=== PATIENT | female | born 1990 | race Caucasian/White ===

== ENCOUNTER 2020-06-06 12:34 | Emergency (ER) | payer BC ==
--- NOTE | 2020-06-06 13:14 | EDM.PDOC ---
ED HPI GENERAL MEDICAL PROBLEM - General Chief Complaint: Cardiovascular Problem Stated Complaint: Palpitations Time Seen by Provider: 06/06/20 12:48 Source of Information: Reports: Patient History Limitations: Reports: No Limitations - History of Present Illness INITIAL COMMENTS - FREE TEXT/NARRATIVE: HISTORY AND PHYSICAL: History of present illness: Patient is a 30-year-old 22wk , female presenting to the ED with concerns of heart palpitations. Patient sees Dr. Eda Altamirano, obstetrics, at [facility]. Patient states that she has a history of heart palpitations that she states "she has always had" but since becoming has been more noticeable. Patient states earlier today she noticed more frequent palpitations than usual and her heart rate was 108 consistently so she was concerned and came to the ED for further evaluation. Patient states that she has been prescribed a Holter monitor but has yet to receive the device p rescribed by Dr. Altamirano. Patient denies any abdominal pain, cramping, vaginal bleeding, vaginal discharge and states that she has been feeling baby move appropriately. Patient denies fever, chills, chest pain, shortness of breath, or cough. Denies headache, neck stiff ness, change in vision, syncope, or near syncope. Denies nausea, vomiting, abdominal pain, diarrhea, constipation, or dysuria. Has not noted any blood in urine or stool. Patient has been eating and drinking appropriately. Review of systems: As per history of present illness and below otherwise all systems reviewed and negative. Past medical history: As per history of present illness and as reviewed below otherwise noncontributory. Surgical history: As per history of present illness and as reviewed below otherwise non contributory. Social history: See social history for further information Family history: As per history of present illness and as reviewed below otherwise noncontributory. Physical exam: General: Patient is alert, oriented, and in no acute distress. Patient sitting comfortably on exam table. Vitals stable and reviewed by me. HEENT: Patient states that she felt lightheaded upon sitting up during her exam. Horizontal nystagmus noted. Otherwise, atraumatic, normocephalic, pupils equal and reactive bilaterally, negative for conjunctival pallor or scleral icterus, mucous membranes moist, TMs normal bilaterally, throat clear, neck supple, nontender, trachea midline. No drooling or trismus noted. No meningeal signs. No hot potato voice noted. Lungs: Clear to auscultation, breath sounds equal bilaterally, chest nontender. Heart: S1S2, regular rate and rhythm without overt murmur. No JVD noted Abdomen: Gravid, Soft and nontender. Negative for masses or hepatosplenomegaly. Negative for costovertebral tenderness. Pelvis: Stable nontender. Genitourinary: Deferred. Rectal: Deferred. Skin: Intact, warm, dry. No lesions or rashes noted. Extremities: Atraumatic, negative for cords or calf pain. Neurovascular unremarkable. Neuro: Awake, alert, oriented. Cranial nerves II through XII unremarkable. Cerebellum unremarkable. Motor and sensory unremarkable throughout. Exam nonfocal. Notes: On initial exam, patient is vitally stable and well appearing. Will perform routine labwork and EKG. Labwork today is unremarkable. See Dr. Roberts dictation for specific EKG interpretation. Normal sinus rhythm without STEMI. PVC noted. heart tones: 158 bpm Remains vitally stable and comfortable throughout stay in ED. Zio patch/holter monitor was placed today in the ED with instruction to keep on for 2 weeks. Results sent to her primary care provider/AGRICULTURAL EDUCATION TEACHER provider Dr. Altamirano. Strict return precautions thoroughly discussed with patient. Discussed importance for follow-up with her AGRICULTURAL EDUCATION TEACHER provider. Voices understanding and is agreeable to plan of care. Denies any further questions or concerns at this time. Diagnostics: EKG, CBC, CMP, Trop Therapeutics: Normal saline Prescription: ZioPatch Holter Monitor Impression: Palpitations , 22 weeks Plan: 1. Wear the ZioPatch for 2 weeks as discussed. 2. Stop all caffeine intake as discussed. 3. Follow up with your OBGYN provider Dr. Altamirano as discussed. Results from testing will go to her for follow up. 4. Return to the ED as needed and as discussed. Definitive disposition and diagnosis as appropriate pending reevaluation and review of above. - Related Data Allergies Allergy/AdvReac Type Severity Reaction Status Date / Time nitrofurantoin Allergy Other Verified 06/06/20 13:39 [From Macrobid] Home Meds: Home Meds . [No Known Home Meds] 06/06/20 [History] Vits #93/Iron Fum/FA [ Formula Tablet] 1 tab PO DAILY 06/06/20 [History] ED ROS GENERAL - Review of Systems Review Of Systems: Comprehensive ROS is negative, except as noted in HPI. ED EXAM, GENERAL - Physical Exam Exam: See Below (see dictation) Course - Vital Signs Last Recorded V/S: Last Vital Signs Temp 97.2 F 06/06/20 12:49 Pulse 88 06/06/20 15:00 Resp 16 06/06/20 15:00 BP 106/60 06/06/20 15:00 Pulse Ox 99 06/06/20 15:00 Orthostatic Blood Pressure [ 125/82 Standing] Orthostatic Blood Pressure [ 121/78 Sitting] Orthostatic Blood Pressure [ 119/72 Supine] - Orders/Labs/Meds Orders: Active Orders 24 hr Category Date Time Status EKG Documentation Completion [RC] STAT Care 06/06/20 13:04 Active Orthostatic Vital Signs [RC] ASDIRECTED Care 06/06/20 13:34 Active Labs: Laboratory Tests 06/06/20 06/06/20 Range/Units 12:50 12:50 WBC 8.73 (4.0-11.0) K/uL RBC 3.98 L (4.30-5.90) M/uL Hgb 12.3 (12.0-16.0) g/dL Hct 36.3 (36.0-46.0) % MCV 91.2 (80.0-98.0) fL MCH 30.9 (27.0-32.0) pg MCHC 33.9 (31.0-37.0) g/dL RDW Std Deviation 45.5 (28.0-62.0) fl RDW Coeff of Saurabh 14 (11.0-15.0) % Plt Count 223 (150-400) K/uL MPV 9.00 (7.40-12.00) fL Neut % (Auto) 70.8 (48.0-80.0) % Lymph % (Auto) 23.1 (16.0-40.0) % [place] % (Auto) 4.7 (0.0-15.0) % Eos % (Auto) 1.3 (0.0-7.0) % Baso % (Auto) 0.1 (0.0-1.5) % Neut # (Auto) 6.2 H (1.4-5.7) K/uL Lymph # (Auto) 2.0 (0.6-2.4) K/uL [place] # (Auto) 0.4 (0.0-0.8) K/uL Eos # (Auto) 0.1 (0.0-0.7) K/uL Baso # (Auto) 0.0 (0.0-0.1) K/uL Nucleated RBC % 0.0 /100WBC Nucleated RBCs # 0 K/uL Sodium 138 (136-145) mmol/L Potassium 3.6 (3.5-5.1) mmol/L Chloride 103 (98-107) mmol/L Carbon Dioxide 25.0 (21.0-32.0) mmol/L BUN 5 L (7.0-18.0) mg/dL Creatinine 0.6 (0.6-1.0) mg/dL Est Cr Clr Drug Dosing TNP Estimated GFR (MDRD) > 60.0 ml/min Glucose 100 (74-106) mg/dL Calcium 8.5 (8.5-10.1) mg/dL Total Bilirubin 0.3 (0.2-1.0) mg/dL AST 15 (15-37) IU/L ALT 22 (14-63) IU/L Alkaline Phosphatase 37 L (46-116) U/L Troponin I < 0.050 (0.000-0.056) ng/mL Total Protein 6.8 (6.4-8.2) g/dL Albumin 2.9 L (3.4-5.0) g/dL Globulin 3.9 (2.6-4.0) g/dL Albumin/Globulin Ratio 0.7 L (0.9-1.6) Meds: Medications Discontinued Medications Generic Name Dose Route Start Last Admin Trade Name Freq PRN Reason Stop Dose Admin Sodium Chloride 1,000 mls @ 999 mls/hr 06/06/20 13:34 06/06/20 13:43 Normal Saline IV 06/06/20 14:34 999 mls/hr STAT ONE Administration Departure - Departure Time of Disposition: 14:48 Disposition: Home, Self-Care 01 Clinical Impression: Palpitations Qualifiers: Weeks of gestation: 22 weeks Qualified Code(s): Z3A.22 - 22 weeks gestation of Instructions: Palpitations, [id number] Referrals: PCP,None [Primary Care Provider] - Forms: ED Department Discharge Additional Instructions: The following information is given to patients seen in the emergency department who are being discharged to home. This information is to outline your options for follow-up care. We provide all patients seen in our emergency department with a follow-up referral. The need for follow-up, as well as the timing and circumstances, are variable depending upon the specifics of your emergency department visit. If you don't have a primary care physician on staff, we will provide you with a referral. We always advise you to contact your personal physician following an emergency department visit to inform them of the circumstance of the visit and for follow-up with them and/or the need for any referrals to a consulting specialist. The emergency department will also refer you to a specialist when appropriate. This referral assures that you have the opportunity for follow-up care with a specialist. All of these measure are taken in an effort to provide you with o ptimal care, which includes your follow-up. Under all circumstances we always encourage you to contact your private physician who remains a resource for coordinating your care. When calling for follow-up care, please make the office aware that this follow-up is from your recent emergency room visit. If for any reason you are refused follow-up, please contact the [facility] Emergency Department at and asked to speak to the emergency department charge nurse. [facility] [address] [place], [place] [id number] [place] [address] 1. Wear the ZioPatch for 2 weeks as discussed. 2. Stop all caffeine intake as discussed. 3. Follow up with your OBGYN provider Dr. Altamirano as discussed. Results from testing will go to her for follow up. 4. Return to the ED as needed and as discussed. Sepsis Event Note (ED) - Focused Exam Vital Signs: Vital Signs Temp Pulse Resp BP Pulse Ox 06/06/20 15:00 88 16 106/60 99 06/06/20 12:49 97.2 F 101 H 17 127/85 97 - My Orders Last 24 Hours: My Active Orders 06/06/20 13:04 EKG Documentation Completion [RC] STAT 06/06/20 13:34 Orthostatic Vital Signs [RC] ASDIRECTED - Assessment/Plan Last 24 Hours: My Active Orders 06/06/20 13:04 EKG Documentation Completion [RC] STAT 06/06/20 13:34 Orthostatic Vital Signs [RC] ASDIRECTED
[2020-06-06 13:29] LABS: BLOOD UREA NITROGEN,BUN 5 mg/dL (7.0-18.0); CHLORIDE,CL 103 mmol/L (98-107); GLUCOSE RANDOM 100 mg/dL (74-106); POTASSIUM,K 3.6 mmol/L (3.5-5.1); SODIUM,NA 138 mmol/L (136-145)
--- NOTE | 2020-06-06 13:30 | PCM.SN.2 ---
- Free Text/Narrative Note: Sinus tachycardia heart rate 97 [place] [address] and T there are 2 PVC. There is no prior for comparison impression no acute injury
[2020-06-06] MEDS ORDERED: Sodium Chloride 0.9% 1,000 ML IV ONE (13:34)
== END 2020-06-06 15:19 | disposition home or self-care (01) ==
LOC: MW.ED 12:34
DX: O99.891 Other specified diseases and conditions complicating pregnancy (principal); R00.2 Palpitations; Z3A.22 22 weeks gestation of pregnancy; Z88.1 Allergy status to other antibiotic agents
CPT/HCPCS: 36415; 80053; 84484; 85025; 93005; 99285; J7030; 93010; 99283

== ENCOUNTER 2020-07-26 17:46 | Emergency (ER) | payer BC ==
[2020-07-26] MEDS ORDERED: Acetaminophen 500 MG Tab PO ONE (18:11)
[2020-07-26] MEDS ORDERED: Diphtheria,Pertussis(Acell),Tetanus Vaccine 0.5 ML Syringe IM ONE (18:12)
--- NOTE | 2020-07-26 18:46 | EDM.PDOC ---
<KarthikeyanTony - Last Filed: 07/26/20 19:26> ED HPI GENERAL MEDICAL PROBLEM - General Chief Complaint: Upper Extremity Injury/Pain Stated Complaint: LT WRIST INJURY, 30 WKS Time Seen by Provider: 07/26/20 18:00 - Related Data Allergies Allergy/AdvReac Type Severity Reaction Status Date / Time latex Allergy Rash Verified 07/26/20 18:07 nitrofurantoin Allergy Other Verified 06/06/20 13:39 [From Macrobid] Home Meds: Home Meds Vits #93/Iron Fum/FA [ Formula Tablet] 1 tab PO DAILY 06/06/20 [History] Departure - Departure Time of Disposition: 19:27 Disposition: Home, Self-Care 01 Condition: Good Clinical Impression: Contusion of wrist, left - Discharge Information *PRESCRIPTION DRUG MONITORING PROGRAM REVIEWED*: Not Applicable *COPY OF PRESCRIPTION DRUG MONITORING REPORT IN PATIENT DILIP: Not Applicable Instructions: Hand Contusion Referrals: Adan Ceballos MD [Primary Care Provider] - Forms: ED Department Discharge Additional Instructions: Your x-rays today showed no broken bones or malalignment of the bones. You do have a small bone spur likely related to your old injury. Your pain is over this area so I suspect when he fell acute against that small spur this is likely contributing to your pain. I encourage you to rest the area you can use Tylenol as you need for pain control. If it does not improve over the next several days I encourage you to follow-up with your primary care doctor. The following information is given to patients seen in the emergency department who are being discharged to home. This information is to outline your options for follow-up care. We provide all patients seen in our emergency department with a follow-up referral. The need for follow-up, as well as the timing and circumstances, are variable depending upon the specifics of your emergency department visit. If you don't have a primary care physician on staff, we will provide you with a referral. We always advise you to contact your personal physician following an emergency department visit to inform them of the circumstance of the visit and for follow-up with them and/or the need for any referrals to a consulting specialist. The emergency department will also refer you to a specialist when appropriate. This referral assures that you have the opportunity for follow-up care with a specialist. All of these measure are taken in an effort to provide you with optimal care, which includes your follow-up. Under all circumstances we always encourage you to contact your private physician who remains a resource for coordinating your care. When calling for follow-up care, please make the office aware that this follow-up is from your recent emergency room visit. If for any reason you are refused follow-up, please contact the [facility] Emergency Department at and asked to speak to the emergency department charge nurse. - Assessment/Plan Assessment:: Patient received in signout from Dr. Tesfaye. X-ray without acute fracture. Suspect wrist contusion. Patient comfortable with diagnosis discharge with follow-up. <Kingsley Tesfaye - Last Filed: 07/26/20 19:38> ED HPI GENERAL MEDICAL PROBLEM - History of Present Illness INITIAL COMMENTS - FREE TEXT/NARRATIVE: CHIEF COMPLAINT(S): Left wrist injury HISTORY OF PRESENT ILLNESS: This is a 30-year-old man who is approximately 29 weeks who comes to the emergency department with a chief complaint of left wrist injury. The patient states that she was breaking up a fight between some dogs when she fell and hit her left wrist. She denies hitting her abdomen and denies any vaginal bleeding, nausea or vomiting. She denies any head injury or loss of consciousness. She states that she is experiencing an achy pain of her left wrist located on the dorsal aspect where the swelling is. She states that she does not have any increased numbness or tingling and has nerve pain from a prior injury. She rates her pain as 4-5 out of 10 without any radiation. She states that she has not yet taken any pain medication. She does not know when her last tetanus was updated however they are recommending tetanus at her next OB appointment. She denies any other injury. She denies any radiation of this pain. She states that movement or touching it worsens it. REVIEW OF SYSTEMS: [Cardiovascular: Denies chest pain Respiratory: Denies shortness of breath Gastrointestinal: Denies Nausea, vomiting, diarrhea, hematochezia. Genitourinary: Denies hematuria, vaginal bleeding, vaginal discharge Skin: Positive for abrasion to left wrist MSK: Positive for left wrist pain Neurological: Denies blurred vision, numbness, tingling, weakness, head injury Psychiatric: Denies depression] PAST MEDICAL HISTORY: As per history of present illness and as reviewed below otherwise noncontributory. SURGICAL HISTORY: As per history of present illness and as reviewed below otherwise noncontributory. LMP: Approximately 29 weeks ago SOCIAL HISTORY: As per history of present illness and as reviewed below otherwise noncontributory. FAMILY HISTORY: As per history of present illness and as reviewed below otherwise noncontributory. EXAMINATION OF ORGAN SYSTEMS/BODY AREAS: Constitutional: Heart rate was 133, respiratory rate 18 with an oxygen saturation of 98% on room air. Blood pressure 132/76. Temperature 36.2 General: Overall well-appearing woman who is in no acute distress Psychiatric: [Appropriate mood and affect.] Eyes: [No scleral icterus or conjunctival erythema] ENMT: [Moist mucous membranes. No pharyngeal erythema] Cardiovascular: [Regular, rate, and rhythm.] [No gallops, murmurs, or rubs.] Bilateral upper extremity pulses symmetric and intact. No peripheral edema. No JVD. Respiratory: [Lungs clear to auscultation bilaterally.][No wheezes, rales, or rhonchi.] Gastrointestinal: [Soft, non-tender, non-distended.] [Normoactive bowel sounds] Genitourinary: [No suprapubic tenderness] Musculoskeletal: The patient has full range of motion of all the digits on her left hand however limited mobility of her left thumb which she states is chronic. She does have dorsal tenderness to the wrist without any medial or lateral tenderness. There is some swelling in this area. No obvious deformity. No anatomical snuffbox tenderness. Skin: There is an abrasion to the posterior aspect of the left wrist Neurological: [Alert, GCS 15] distal sensation is intact of bilateral upper extremities distally MEDICAL DECISION MAKING AND COURSE IN THE ED WITH INTERPRETATION/REVIEW OF DIAGNOSTIC STUDIES: This is a 30-year-old 1 who is approximately 29 weeks gestation who comes to the emergency department with left wrist injury with abrasion who has no obvious deformity with chronic limited range of motion of her left thumb. Will obtain heart tones. At this time we will obtain a left wrist x-ray for evaluation. We will update the patient's tetanus shot and provide the patient with Tylenol for pain relief. Patient signed [facility] physician pending x ray and final disposition Kingsley Tesfaye M.D. Left wrist Pain Score (Numeric/FACES): 5 Past Medical History HEENT History: Reports: None Cardiovascular History: Reports: Other (See Below) Other Cardiovascular History: palpitations Respiratory History: Reports: None Gastrointestinal History: Reports: None Genitourinary History: Reports: None BOOM SUPERVISOR History: Reports: Musculoskeletal History: Reports: None Neurological History: Reports: None Psychiatric History: Reports: Anxiety, Depression Endocrine/Metabolic History: Reports: None Hematologic History: Reports: None Immunologic History: Reports: None Oncologic (Cancer) History: Reports: None Dermatologic History: Reports: None - Infectious Disease History Infectious Disease History: Reports: None - Past Surgical History Head Surgeries/Procedures: Reports: None HEENT Surgical History: Reports: None Cardiovascular Surgical History: Reports: None Respiratory Surgical History: Reports: None GI Surgical History: Reports: None Female Surgical History: Reports: Section Endocrine Surgical History: Reports: None Neurological Surgical History: Reports: None Musculoskeletal Surgical History: Reports: None Oncologic Surgical History: Reports: None Dermatological Surgical History: Reports: None Social & Family History - Family History Family Medical History: No Pertinent Family History - Tobacco Use Tobacco Use Status *Q: Never Tobacco User Second Hand Smoke Exposure: No - Caffeine Use Caffeine Use: Reports: None - Recreational Drug Use Recreational Drug Use: No Review of Systems - Review of Systems Review Of Systems: See Below ED EXAM, GENERAL - Physical Exam Exam: See Below Course - Vital Signs Last Recorded V/S: Last Vital Signs Temp 36.2 C 07/26/20 18:04 Pulse 113 H 07/26/20 18:04 Resp 18 07/26/20 18:04 BP 132/76 07/26/20 18:04 Pulse Ox 98 07/26/20 18:04 - Orders/Labs/Meds Orders: Active Orders 24 hr Category Date Time Status Vaccines to be Administered [RC] PER UNIT ROUTINE Care 07/26/20 18:12 Active Meds: Medications Discontinued Medications Generic Name Dose Route Start Last Admin Trade Name Freq PRN Reason Stop Dose Admin Acetaminophen 1,000 mg 07/26/20 18:11 07/26/20 18:31 Acetaminophen 500 Mg Tab PO 07/26/20 18:12 1,000 mg ONETIME ONE Administration Diphtheria/Tetanus/Acell Pertussis 0.5 ml 07/26/20 18:12 05/03/21 18:31 Diphtheria,Pertussis(Acell),Tetanus Vaccine 0.5 Ml Syringe IM 07/26/20 18:13 0.5 ml .ONCE ONE Administration Sepsis Event Note (ED) - Evaluation Sepsis Screening Result: No Definite Risk - Focused Exam Vital Signs: Vital Signs Temp Pulse Resp BP Pulse Ox 07/26/20 18:04 36.2 C 113 H 18 132/76 98 - My Orders Last 24 Hours: My Active Orders 07/26/20 18:12 Vaccines to be Administered [RC] PER UNIT ROUTINE - Assessment/Plan Last 24 Hours: My Active Orders 07/26/20 18:12 Vaccines to be Administered [RC] PER UNIT ROUTINE
--- NOTE | 2020-07-26 19:24 | CR ---
HISTORY: Wrist injury with pain after breaking up a dog fight. COMPARISON: None available. FINDINGS: AP, lateral, and oblique views of the left wrist are obtained for a total of three views. There is no sign of fracture or dislocation. The bones of the carpus are in anatomic alignment with the distal radius. No degenerative disease is seen. The soft tissues are normal in appearance with no sign of foreign body. IMPRESSION: Normal left wrist. Dictated by Chalino Puente MD @ 07/26/2020 7:23:[address] Chalino Puente @ Jul 26 2020 7:23PM
== END 2020-07-26 20:05 | disposition home or self-care (01) ==
LOC: MW.ED 17:46
DX: O9A.213 Injury, poisoning and certain other consequences of external causes complicating pregnancy, third trimester (principal); S60.212A Contusion of left wrist, initial encounter; Z91.040 Latex allergy status; Z88.1 Allergy status to other antibiotic agents; Z23 Encounter for immunization; Z3A.29 29 weeks gestation of pregnancy; W22.8XXA Striking against or struck by other objects, initial encounter
CPT/HCPCS: 73110; 90471; 90715; 99283; A9270

== ENCOUNTER 2020-10-01 00:42 | Inpatient (IN) | payer BC ==
[2020-10-01] MEDS ORDERED: Sodium Chloride 0.9% 10 ML SDV IV PRN (02:51)
[2020-10-01] MEDS ORDERED: Water For Irrigation,Sterile 1,000 ML Container IRR PRN (02:51)
[2020-10-01] MEDS ORDERED: Methylergonovine 0.2 MG/1 ML Amp IM PRN (02:51)
[2020-10-01] MEDS ORDERED: Ampicillin 2 GM in Sodium Chloride 0.9% 100 ML IV ONE (02:51)
[2020-10-01] MEDS ORDERED: Tranexamic Acid 1,000 MG in Sodium Chloride 0.9% 100 ML IV PRN (02:51)
[2020-10-01] MEDS ORDERED: Butorphanol 1 MG/ML SDV IVPUSH PRN (02:51)
[2020-10-01] MEDS ORDERED: Carboprost Tromethamine 250 MCG/1 ML Amp IM PRN (02:51)
[2020-10-01] MEDS ORDERED: Ondansetron 4 MG/2 ML SDV IVPUSH PRN (02:51)
[2020-10-01] MEDS ORDERED: Lidocaine 1% 50 ML MDV INJECT PRN (02:51)
[2020-10-01] MEDS ORDERED: Misoprostol 200 MCG Tab PO PRN (02:51)
[2020-10-01] MEDS ORDERED: Sodium Chloride 0.9% 10 ML Syringe FLUSH PRN (02:51)
[2020-10-01] MEDS ORDERED: Sodium Chloride 0.9% 2.5 ML Syringe FLUSH PRN (02:51)
[2020-10-01] MEDS ORDERED: Oxytocin/0.9 % Sodium Chloride 30 UNIT/500 ML BAG IV SCH (03:00)
[2020-10-01] MEDS ORDERED: Ampicillin 2 GM Vial ONE (03:42)
[2020-10-01] MEDS ORDERED: Sodium Chloride 0.9% 100 ML ONE (03:44)
[2020-10-01] MEDS: Lactated Ringers 1,000 ML IV SCH ×2 (03:53→11:25)
[2020-10-01] MEDS: Ampicillin 1 GM in Sodium Chloride 0.9% 50 ML IV SCH ×2 (08:05→12:03)
[2020-10-01] MEDS ORDERED: fentaNYL 100 MCG/2 ML SDV ONE (14:02)
[2020-10-01] MEDS ORDERED: Bupivacaine 0.25% 10 ML SDV ONE (14:02)
--- NOTE | 2020-10-01 14:26 | PCM.PREANE ---
Preanesthetic Assessment - Anesthesia/Transfusion/Family Hx Anesthesia History: Prior Anesthesia Without Reaction Family History of Anesthesia Reaction: No - Review of Systems General: No Symptoms Pulmonary: No Symptoms Cardiovascular: No Symptoms Gastrointestinal: No Symptoms Neurological: No Symptoms Other: Reports: None - Physical Assessment NPO Status Date: 10/01/20 NPO Status Time: 00:00 Height: 5 ft 7 in Weight: 198 lb ASA Class: 3 Mental Status: Alert & Oriented x3 Dentition: Reports: Normal Dentition ROM/Head Extension: Full Lungs: Clear to Auscultation, Normal Respiratory Effort Cardiovascular: Regular Rate, Regular Rhythm - Lab Values: Laboratory Last Values WBC 10.06 K/uL (4.0-11.0) 10/01/20 03:30 RBC 3.63 M/uL (4.30-5.90) L 10/01/20 03:30 Hgb 10.5 g/dL (12.0-16.0) L 10/01/20 03:30 Hct 31.2 % (36.0-46.0) L 10/01/20 03:30 MCV 86.0 fL (80.0-98.0) 10/01/20 03:30 MCH 28.9 pg (27.0-32.0) 10/01/20 03:30 MCHC 33.7 g/dL (31.0-37.0) 10/01/20 03:30 RDW Std Deviation 48.2 fl (28.0-62.0) 10/01/20 03:30 RDW Coeff of Saurabh 16 % (11.0-15.0) H 10/01/20 03:30 Plt Count 184 K/uL (150-400) 10/01/20 03:30 MPV 9.30 fL (7.40-12.00) 10/01/20 03:30 Nucleated RBC % 0.0 /100WBC 10/01/20 03:30 Nucleated RBCs # 0 K/uL 10/01/20 03:30 SARS-CoV-2 RNA (ABRAHAM) NEGATIVE (NEGATIVE) 10/01/20 03:25 Blood Type A NEGATIVE 10/01/20 03:30 Antibody Screen NEGATIVE 10/01/20 03:30 - Allergies Allergies/Adverse Reactions: Allergies Allergy/AdvReac Type Severity Reaction Status Date / Time latex Allergy Rash Verified 07/26/20 18:07 nitrofurantoin Allergy Other Verified 06/06/20 13:39 [From Macrobid] - Blood Blood Available: Yes Product(s) Available: PRBC - Anesthesia Plan Pre-Op Medication Ordered: None - Acknowledgements Anesthesia Type Planned: Spinal Pt an Appropriate Candidate for the Planned Anesthesia: Yes Alternatives and Risks of Anesthesia Discussed w Pt/Guardian: Yes Pt/Guardian Understands and Agrees with Anesthesia Plan: Yes PreAnesthesia Questionnaire HEENT History: Reports: None Cardiovascular History: Reports: Other (See Below) Other Cardiovascular History: palpitations Respiratory History: Reports: Asthma Gastrointestinal History: Reports: Other (See Below) Other Gastrointestinal History: Reflux Genitourinary History: Reports: None 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: Musculoskeletal History: Reports: None Neurological History: Reports: None Psychiatric History: Reports: Anxiety, Depression Endocrine/Metabolic History: Reports: None Hematologic History: Reports: None Immunologic History: Reports: None Oncologic (Cancer) History: Reports: None Dermatologic History: Reports: None - Infectious Disease History Infectious Disease History: Reports: Chicken Pox - Past Surgical History Head Surgeries/Procedures: Reports: None HEENT Surgical History: Reports: None Cardiovascular Surgical History: Reports: None Respiratory Surgical History: Reports: None GI Surgical History: Reports: None Female Surgical History: Reports: Section Endocrine Surgical History: Reports: None Neurological Surgical History: Reports: None Musculoskeletal Surgical History: Reports: None Oncologic Surgical History: Reports: None Dermatological Surgical History: Reports: None - SUBSTANCE USE Tobacco Use Status *Q: Never Tobacco User Second Hand Smoke Exposure: No Recreational Drug Use History: No - HOME MEDS Home Medications: Home Meds Vits #93/Iron Fum/FA [ Formula Tablet] 1 tab PO DAILY 06/06/20 [History] - CURRENT (IN HOUSE) MEDS Current Meds: Current Medications Butorphanol Tartrate (Butorphanol 1 Mg/Ml Sdv) 1 mg IVPUSH Q1H PRN PRN Reason: Pain (severe 7-10) Carboprost Tromethamine (Carboprost Tromethamine 250 Mcg/1 Ml Amp) 250 mcg IM ASDIRECTED PRN PRN Reason: Post Hemorrhage Oxytocin/Sodium Chloride (Oxytocin 30 Unit/500 Ml-Ns) 30 unit in 500 mls @ 999 mls/hr IV TITRATE [facility] Tranexamic Acid 1,000 mg/ (Sodium Chloride) 110 mls @ 660 mls/hr IV ONETIME PRN PRN Reason: Bleeding Lactated Ringer's (Ringers, Lactated) 1,000 mls @ 150 mls/hr IV ASDIRECTED [facility] Last Admin: 10/01/20 11:25 Dose: 150 mls/hr Documented by: Ampicillin Sodium 1 gm/ Sodium (Chloride) 50 mls @ 100 mls/hr IV Q4H [facility] Last Admin: 10/01/20 12:03 Dose: 100 mls/hr Documented by: Lidocaine HCl (Lidocaine 1% 50 Ml Mdv) 50 ml INJECT ONETIME PRN PRN Reason: Laceration repair Methylergonovine Maleate (Methylergonovine 0.2 Mg/1 Ml Amp) 0.2 mg IM ASDIRECTED PRN PRN Reason: Post Hemorrhage Misoprostol (Misoprostol 200 Mcg Tab) 200 mcg PO ONETIME PRN PRN Reason: Post Hemorrhage Ondansetron HCl (Ondansetron 4 Mg/2 Ml Sdv) 4 mg IVPUSH Q6H PRN PRN Reason: Nausea/Vomiting Last Admin: 10/01/20 13:34 Dose: 4 mg Documented by: Sodium Chloride (Sodium Chloride 0.9% 10 Ml Syringe) 10 ml FLUSH ASDIRECTED PRN PRN Reason: Keep Vein Open Sodium Chloride (Sodium Chloride 0.9% 2.5 Ml Syringe) 2.5 ml FLUSH ASDIRECTED PRN PRN Reason: Keep Vein Open Sodium Chloride (Sodium Chloride 0.9% 10 Ml Sdv) 10 ml IV ASDIRECTED PRN PRN Reason: IV Use Sterile Water (Water For Irrigation,Sterile 1,000 Ml Container) 1,000 ml IRR ASDIRECTED PRN PRN Reason: delivery Discontinued Medications Ampicillin Sodium (Ampicillin 2 Gm Vial) Confirm Administered Dose 2 gm .ROUTE .STK-MED ONE Stop: 10/01/20 03:43 Last Admin: 10/01/20 07:22 Dose: Not Given Documented by: Bupivacaine HCl (Bupivacaine 0.25% 10 Ml Sdv) Confirm Administered Dose 10 ml .ROUTE .STK-MED ONE Stop: 10/01/20 14:03 Fentanyl (Fentanyl 100 Mcg/2 Ml Sdv) Confirm Administered Dose 100 mcg .ROUTE .STK-MED ONE Stop: 10/01/20 14:03 Ampicillin Sodium 2 gm/ Sodium (Chloride) 100 mls @ 200 mls/hr IV ONETIME ONE Stop: 10/01/20 03:20 Last Infusion: 10/01/20 04:25 Dose: Infused Documented by: Sodium Chloride (Normal Saline) Confirm Administered Dose 100 mls @ as directed .ROUTE .STK-MED ONE Stop: 10/01/20 03:45 Last Admin: 10/01/20 07:22 Dose: Not Given Documented by: - Pre-Procedure Checklist Attending Provider Aware: Yes Chart Reviewed: Yes Consent Signed: Yes Labs Reviewed: Hematocrit, Hemoglobin, Platelet VS/FHR Reviewed: Yes Patient Identification Confirmation Method: Verbal Patient Pt an Appropriate Candidate for the Planned Anesthesia: Yes Alternatives and Risks of Anesthesia Discussed w Pt/Guardian: Yes - Procedure Procedure Start Date: 10/01/20 Procedure Start Time: 14:[address]: Reports: Blood Pressure, Heart Rate, SPO2 Functional IV: Yes Safety Measures: Reports: Patient Identified, Procedure Verified, Site Verified, Procedure Time Out Patient Position: Reports: Left Lateral Prep: Reports: Betadine x3, Sterile Drape Regional Placement Level: Reports: L3-4 Needle: Reports: Pencan 25g Approach: Reports: Midline Parasthesia: Reports: None Fluid Obtained: Reports: Cerebrospinal Fluid Barbotage: Yes Medication(s): bupivicaine0.25% 1cc and fentanyl 25mcg Time Medication Injected: 14:10 Patient Position Post Placement: Reports: Supline/CESAR VS and FHR Monitored in Unit Post Placement: Yes Procedure End Date: 10/01/20 Procedure End Time: 15:05
[2020-10-01] MEDS ORDERED: diphenhydrAMINE 50 MG/ML SDV IVPUSH ONE (14:53)
--- NOTE | 2020-10-01 15:06 | PCM.OPNOTE ---
- General Post-Op/Procedure Note Date of Surgery/Procedure: 10/01/20 Operative Procedure(s): /IP Findings: Viable female APGARs 8, 9 weight 3350 gm. Spontaneous delivery intact placenta with 3 V cord. Pre Op Diagnosis: 39/1 week IUP. Previous LTCS, desires TOLAC. GBBS + Post-Op Diagnosis: same Anesthesia Technique: Regional Block Primary Surgeon: Luz Altamirano EBL in mLs: 250 Complications: none known Condition: Stable Free Text/Narrative:: Dictation [id number]
[2020-10-01] MEDS ORDERED: Glycopyrrolate 0.2 MG/ML SDV IVPUSH ONE ×2 (15:35→17:32)
--- NOTE | 2020-10-02 05:18 | OR ---
SURGEON: Luz Altamirano M.D. DATE OF PROCEDURE: 10/01/2020 PREOPERATIVE DIAGNOSES: 1. 39-week 1-week intrauterine . 2. Previous LTCS. 3. Desires trial of labor after . 4. Group B streptococcus positive. POSTOPERATIVE DIAGNOSES: 1. 39-week 1-week intrauterine . 2. Previous LTCS. 3. Desires trial of labor after . 4. Group B streptococcus positive. PROCEDURE: Vaginal after with intact perineum. ANESTHESIA: Intrathecal with pudendal. PRIMARY SURGEON: Luz Altamirano M.D. ESTIMATED BLOOD LOSS: 250 mL. COMPLICATIONS: None. FINDINGS: Viable female. scores 8 at one minute and 9 at five minutes. Weight of 3350 g. Delivery, intact placenta, 3-vessel cord. DISPOSITION: to nursery, mom in LDRP. PROCEDURE DETAILS: Mary Kay is a 30-year-old G4, P3, at 39 and 1-week gestation who presents today for scheduled amniotomy. She does desire a trial of labor after . She has had two successful VBACs already. Risks of procedure have been discussed with her and proper consent obtained. The patient was admitted, underwent her group B beta strep prophylaxis. Category 1 heart tones. After receiving second dose of ampicillin, underwent amniotomy. Clear fluid was returned. She was found to be 3 to 4 cm, 70% effaced, minus 2 station, and she was continued to be monitored throughout the sas administrator hours. With application of breast pump ambulation, the patient began having more regular contractions. Shortly after 1 p.m., contractions were quite intense and she was breathing through them. She did subsequently request regional anesthesia; however, she progressed from 5 to 8 cm fairly quickly and then 9 cm. Therefore, during this time, we went ahead and administered pudendal block per patient request, the patient was placed in modified dorsal lithotomy position, prepped and draped in the usual aseptic manner. The pudendal notch was palpated on the left side and 5 mL of 1% lidocaine was introduced in this region followed by the right side in similar fashion. Shortly thereafter, Anesthesia did arrive and was still found to be 9 cm; therefore, was able to place intrathecal. Patient became more comfortable. Continued breathing efforts and quickly progressed to complete, 100% effaced, plus 2 station, with feeling the urge to push. Patient was placed in modified dorsal lithotomy position, prepped and draped in the usual aseptic manner. Continued with pushing efforts, was able to deliver 's head atraumatically spontaneously, followed by anterior shoulder, posterior shoulder, and remainder of the body without difficulty. The infant's oropharynx and nares were bulb suctioned. The was handed off to mother with attending nursery staff at her side. After a delay, cord was clamped x2 and cut. Cord arterial, cord venous, cord blood sampling obtained. Light pressure was applied while the placenta was delivered spontaneously intact. Vigorous fundal uterine massage was then applied while 30 units of Pitocin was delivered in 500 mL of IV fluid. Upon inspection of cervix, vaginal sidewall, and perineum, these were found to be intact. The patient tolerated the procedure well overall. Uterus remained firm. Sponge and instrument count was correct. The patient remained in LDRP, to nursery. KLEBER / HARDIK /[id number]
--- NOTE | 2020-10-02 06:47 | PCM.PNPP ---
- General Info Date of Service: 10/02/20 Subjective Update: 30yo P4 s/p PPD 1 Normal lochia Functional Status: Reports: Pain Controlled, Tolerating Diet, Ambulating, Urinating - Review of Systems General: Reports: No Symptoms HEENT: Reports: No Symptoms Pulmonary: Reports: No Symptoms Cardiovascular: Reports: No Symptoms Gastrointestinal: Reports: No Symptoms Genitourinary: Reports: No Symptoms Musculoskeletal: Reports: No Symptoms Skin: Reports: No Symptoms Neurological: Reports: No Symptoms Psychiatric: Reports: No Symptoms - General Info Date of Service: 10/02/20 - Patient Data Vital Signs - Most Recent: Last Vital Signs Temp 37.1 C 10/01/20 19:35 Pulse 119 H 10/01/20 19:35 Resp 18 10/01/20 19:35 BP 99/62 10/01/20 19:35 Pulse Ox 95 10/01/20 19:35 Weight - Most Recent: 89.811 kg Lab Results - Last 24 Hours: Laboratory Results - last 24 hr 10/01/20 10/01/20 Range/Units 14:34 14:36 Cord ABG pH 7.166 L (7.18-7.38) Cord ABG Base Excess -10 (-10--2) Cord VBG pH 7.168 L (7.25-7.45) Cord VBG Base Excess -8 (-10--2) Med Orders - Current: Current Medications Carboprost Tromethamine (Carboprost Tromethamine 250 Mcg/1 Ml Amp) 250 mcg IM ASDIRECTED PRN PRN Reason: Post Hemorrhage Oxytocin/Sodium Chloride (Oxytocin 30 Unit/500 Ml-Ns) 30 unit in 500 mls @ 999 mls/hr IV TITRATE [facility] Last Admin: 10/01/20 14:36 Dose: 999 mls/hr Documented by: Tranexamic Acid 1,000 mg/ (Sodium Chloride) 110 mls @ 660 mls/hr IV ONETIME PRN PRN Reason: Bleeding Lactated Ringer's (Ringers, Lactated) 1,000 mls @ 150 mls/hr IV ASDIRECTED [facility] Last Admin: 10/01/20 11:25 Dose: 150 mls/hr Documented by: Lidocaine HCl (Lidocaine 1% 50 Ml Mdv) 50 ml INJECT ONETIME PRN PRN Reason: Laceration repair Methylergonovine Maleate (Methylergonovine 0.2 Mg/1 Ml Amp) 0.2 mg IM ASDIR ECTED PRN PRN Reason: Post Hemorrhage Ondansetron HCl (Ondansetron 4 Mg/2 Ml Sdv) 4 mg IVPUSH Q6H PRN PRN Reason: Nausea/Vomiting Last Admin: 10/01/20 13:34 Dose: 4 mg Documented by: Sodium Chloride (Sodium Chloride 0.9% 10 Ml Syringe) 10 ml FLUSH ASDIRECTED PRN PRN Reason: Keep Vein Open Sodium Chloride (Sodium Chloride 0.9% 2.5 Ml Syringe) 2.5 ml FLUSH ASDIRECTED PRN PRN Reason: Keep Vein Open Sodium Chloride (Sodium Chloride 0.9% 10 Ml Sdv) 10 ml IV ASDIRECTED PRN PRN Reason: IV Use Sterile Water (Water For Irrigation,Sterile 1,000 Ml Container) 1,000 ml IRR ASDIRECTED PRN PRN Reason: delivery Discontinued Medications Ampicillin Sodium (Ampicillin 2 Gm Vial) Confirm Administered Dose 2 gm .ROUTE .STK-MED ONE Stop: 10/01/20 03:43 Last Admin: 10/01/20 07:22 Dose: Not Given Documented by: Bupivacaine HCl (Bupivacaine 0.25% 10 Ml Sdv) Confirm Administered Dose 10 ml .ROUTE .STK-MED ONE Stop: 10/01/20 14:03 Butorphanol Tartrate (Butorphanol 1 Mg/Ml Sdv) 1 mg IVPUSH Q1H PRN PRN Reason: Pain (severe 7-10) Diphenhydramine HCl (Diphenhydramine 50 Mg/Ml Sdv) 25 mg IVPUSH ONETIME ONE Stop: 10/01/20 14:54 Last Admin: 10/01/20 15:11 Dose: 25 mg Documented by: Fentanyl (Fentanyl 100 Mcg/2 Ml Sdv) Confirm Administered Dose 100 mcg .ROUTE .STK-MED ONE Stop: 10/01/20 14:03 Glycopyrrolate (Glycopyrrolate 0.2 Mg/Ml Sdv) 0.3 mg IVPUSH ONETIME ONE Stop: 10/01/20 15:36 Last Admin: 10/01/20 16:16 Dose: 0.3 mg Documented by: Glycopyrrolate (Glycopyrrolate 0.2 Mg/Ml Sdv) 0.4 mg IVPUSH ONETIME ONE Stop: 10/01/20 17:33 Last Admin: 10/01/20 18:07 Dose: 0.3 mg Documented by: Ampicillin Sodium 2 gm/ Sodium (Chloride) 100 mls @ 200 mls/hr IV ONETIME ONE Stop: 10/01/20 03:20 Last Infusion: 10/01/20 04:25 Dose: Infused Documented by: Sodium Chloride (Normal Saline) Confirm Administered Dose 100 mls @ as directed .ROUTE .STK-MED ONE Stop: 10/01/20 03:45 Last Admin: 10/01/20 07:22 Dose: Not Given Documented by: Ampicillin Sodium 1 gm/ Sodium (Chloride) 50 mls @ 100 mls/hr IV Q4H [facility] Last Admin: 10/01/20 12:03 Dose: 100 mls/hr Documented by: Misoprostol (Misoprostol 200 Mcg Tab) 200 mcg PO ONETIME PRN PRN Reason: Post Hemorrhage - Infant Interaction Support Person: - Recovery Exam Fundal Tone: Firm Fundal Level: At Umbilicus Fundal Placement: Midline Lochia Amount: Scant Lochia Color: Rubra/Red Perineum Description: Intact, Minimal Bruising/Swelling Episiotomy/Laceration: None Bladder Status: Voiding Urinary Elimination: Voided - Exam General: Alert HEENT: Pupils Equal Neck: Supple Lungs: Clear to Auscultation Cardiovascular: Regular Rate, Regular Rhythm GI/Abdominal Exam: Normal Bowel Sounds Extremities: Normal Inspection - Problem List & Annotations (1) Vaginal after () SNOMED Code(s): 867114264 Code(s): O34.219 - MATERNAL CARE FOR UNSP TYPE SCAR FROM PREVIOUS DEL Status: Acute Current Visit: Yes - Problem List Review Problem List Initiated/Reviewed/Updated: Yes - My Orders Last 24 Hours: My Active Orders 10/01/20 19:24 Telemetry Monitoring [Cardiac Monitoring] [RC] Q8H - Assessment Assessment:: 30yo P4 s/p , ambulating , voiding , , normal lochia Rh negative , rh negative - Plan Plan:: Routine Discharge home today
[2020-10-02] MEDS ORDERED: Docusate Sodium 100 MG Cap PO PRN (10:33)
== END 2020-10-02 16:44 | disposition home or self-care (01) | DRG 560 ==
LOC: MW.OBCHECK 00:42 → MW.OB 00:43 → OBSVTOIN 14:34 → MW.OB 18:49
PROVIDERS: ADMIT Obstetrics & Gynecology; ATTEND Obstetrics & Gynecology
PROC: 10E0XZZ Delivery of Products of Conception, External Approach (ICD-10-PCS; principal; 2020-10-01)
PROC: 10903ZU Drainage of Amniotic Fluid, Diagnostic from Products of Conception, Percutaneous Approach (ICD-10-PCS; 2020-10-01)
PROC: 3E0R3BZ Introduction of Anesthetic Agent into Spinal Canal, Percutaneous Approach (ICD-10-PCS; 2020-10-01)
DX: O99.52 Diseases of the respiratory system complicating childbirth (principal); Z37.0 Single live birth; J45.909 Unspecified asthma, uncomplicated; O99.62 Diseases of the digestive system complicating childbirth; K21.9 Gastro-esophageal reflux disease without esophagitis; O99.824 Streptococcus B carrier state complicating childbirth; Z20.822 Contact with and (suspected) exposure to COVID-19; Z91.040 Latex allergy status; Z88.8 Allergy status to other drugs, medicaments and biological substances; Z3A.39 39 weeks gestation of pregnancy
CPT/HCPCS: 01967; 36415; 59025; 59409; 82803; 85027; 86592; 86850; 86900; 86901; A9270-GY; J0290; J1200; J2405; J2590; J3010; J3490; J7120; U0002

== ENCOUNTER 2024-02-10 06:45 | Emergency (ER) | payer BC ==
[2024-02-10 07:51] LABS: BASOPHILS ABSOLUTE AUTO 0.05 K/uL (0.00-0.20); BASOPHILS PERCENT AUTO 0.5 % (0.0-1.0); EOSINOPHILS ABSOLUTE AUTO 0.52 K/uL (0.00-0.45); EOSINOPHILS PERCENT AUTO 5.7 % (0.0-6.0); HEMATOCRIT 42.3 % (37.0-47.0); HEMOGLOBIN 14.7 g/dL (12.0-16.0); IMMATURE GRAN ABSOLUTE AUTO 0.02 K/uL (0.00-0.05); IMMATURE GRAN PERCENT AUTO 0.2 % (0.0-0.4); LYMPHOCYTES ABSOLUTE AUTO 2.14 K/uL (1.00-4.80); LYMPHOCYTES PERCENT AUTO 23.3 % (24.0-44.0); MEAN CORPUSCULAR HEMOGLOBIN 29.1 pg (28.0-32.0); MEAN CORPUSCULAR HGB CONC 34.8 g/dL (32.0-36.0); MEAN CORPUSCULAR VOLUME 83.6 fL (83.0-99.0); MEAN PLATELET VOLUME 9.1 fL (9.4-12.3); MONOCYTES ABSOLUTE AUTO 0.76 K/uL (0.00-0.80); MONOCYTES PERCENT AUTO 8.3 % (0.0-8.0); PLATELET COUNT,PLT 226 K/uL (150-400); RED BLOOD CELL COUNT 5.06 M/uL (4.10-5.30); WHITE BLOOD CELL COUNT,WBC 9.19 K/uL (3.9-11.3)
[2024-02-10 08:08] LABS: A/G RATIO 0.9 (0.9-1.6); ALBUMIN 3.6 g/dL (3.4-5.0); BILIRUBIN TOTAL 0.6 mg/dL (0.2-1.0); CALCIUM 8.7 mg/dL (8.5-10.1); CARBON DIOXIDE,CO2 25.8 mmol/L (21.0-32.0); EST CRCL DRUG DOSING (CG) 77.81 mL/min; POTASSIUM,K 3.8 mmol/L (3.5-5.1); PROTEIN TOTAL,TP 7.4 g/dL (6.4-8.2)
[2024-02-10] MEDS: Pantoprazole 40 MG in Sodium Chloride 0.9% 10 ML IVPUSH ONE (08:10)
[2024-02-10] MEDS: Sodium Chloride 0.9% 1,000 ML IV STA (08:10)
[2024-02-10 08:24] LABS: APPEARANCE,URINE SLT CLOUDY; BILIRUBIN,URINE NEGATIVE (NEGATIVE); GLUCOSE,URINE NEGATIVE (NEGATIVE); KETONES,URINE NEGATIVE (NEGATIVE); LEUKOCYTE ESTERASE,URINE NEGATIVE (NEGATIVE); NITRITE,URINE NEGATIVE (NEGATIVE); OCCULT BLOOD,URINE MODERATE (NEGATIVE); PROTEIN,URINE TRACE mg/dL (NEGATIVE); UROBILINOGEN,URINE 0.2 EU/dL (<2.0)
[2024-02-10 08:28] LABS: COLOR,URINE YELLOW
[2024-02-10 08:33] LABS: BACTERIA,URINE 2+ (NEGATIVE); EPITHELIAL CELLS,URINE MANY (NONE-FEW); MUCUS,URINE HEAVY (NONE-MOD)
[2024-02-10 10:22] LABS: HEMATOCRIT 39.3 % (37.0-47.0); HEMOGLOBIN 13.8 g/dL (12.0-16.0); MEAN CORPUSCULAR HEMOGLOBIN 29.3 pg (28.0-32.0); MEAN CORPUSCULAR HGB CONC 35.1 g/dL (32.0-36.0); MEAN CORPUSCULAR VOLUME 83.4 fL (83.0-99.0); MEAN PLATELET VOLUME 9.2 fL (9.4-12.3); PLATELET COUNT,PLT 212 K/uL (150-400); RED BLOOD CELL COUNT 4.71 M/uL (4.10-5.30); WHITE BLOOD CELL COUNT,WBC 7.76 K/uL (3.9-11.3)
== END 2024-02-10 10:55 | disposition home or self-care (01) ==
LOC: MW.ED 06:45
DX: K62.5 Hemorrhage of anus and rectum (principal); J45.909 Unspecified asthma, uncomplicated; K21.9 Gastro-esophageal reflux disease without esophagitis; Z91.040 Latex allergy status; Z88.8 Allergy status to other drugs, medicaments and biological substances; Z79.899 Other long term (current) drug therapy; Z75.8 Other problems related to medical facilities and other health care
CPT/HCPCS: 36415; 71046; 80053; 81001; 81025; 83690; 85025; 85027; 86850; 86900; 86901; 96361; 96374; 99284; J2470; J3490; J7030